=== PATIENT | male | born 1940 | race Caucasian/White ===

== ENCOUNTER 2023-09-05 12:18 | Inpatient (IN) | payer MEDICARE, OTHER ==
[~2023-09-05] VITALS: Ht 157.5 cm; Wt 71.2 kg
[2023-09-05] MEDS ORDERED: ESCI-9 PO (12:36)
[2023-09-05] MEDS ORDERED: ROSU10TA29 PO (12:36)
[2023-09-05] MEDS ORDERED: METO-356 PO (12:36)
[2023-09-05] MEDS ORDERED: ESOM40CA52 PO (12:36)
[2023-09-05] MEDS ORDERED: FINA5TAB11 PO (12:36)
[2023-09-05] MEDS ORDERED: PIOG30TA71 PO (12:36)
[2023-09-05] MEDS ORDERED: PRIM50TA5 PO (12:36)
[2023-09-05] MEDS ORDERED: LINA5TAB PO (12:36)
[2023-09-05] MEDS ORDERED: LOSA100T31 PO (12:36)
[2023-09-05] MEDS ORDERED: ZOLP5TAB8 PO (12:36)
[2023-09-05] MEDS ORDERED: BUDE10.26 INH (12:36)
[2023-09-05 12:51] LABS: BASOPHILS % (AUTO) 0.6 % (0.0-2.0); EOSINOPHILS # (AUTO) 0.2 K/uL (0.0-0.7); HEMATOCRIT 42.2 % (36.7-47.1); HEMOGLOBIN 13.9 g/dL (12.5-16.3); LYMPHOCYTES # (AUTO) 0.5 K/uL (0.8-4.8); LYMPHOCYTES % (AUTO) 7.1 % (20.5-51.5); MEAN CORPUSCULAR HEMOGLOBIN 30.2 uug (23.8-33.4); MEAN CORPUSCULAR HGB CONC 33 g/dL (32.5-36.3); MEAN CORPUSCULAR VOLUME 91.6 fL (73.0-96.2); MONOCYTES # (AUTO) 0.7 K/uL (0.1-1.30); MONOCYTES % (AUTO) 9.3 % (0.0-11.0); NEUTROPHILS # (AUTO) 6.2 K/uL (1.8-8.9); PLATELET COUNT (AUTO) 162 K/uL (152-348); RED CELL DISTRIBUTION WIDTH 14.7 % (12.1-16.2); WHITE BLOOD COUNT (AUTO) 7.7 K/uL (3.6-10.2)
[2023-09-05 13:00] LABS: CALCIUM 9.1 mg/dL (8.5-10.1); CARBON DIOXIDE 29 mmol/L (21-32); CHLORIDE 104 mmol/L (98-107); CREATININE 1.3 mg/dL (0.6-1.3); GLUCOSE 151 mg/dL (74-106); POTASSIUM 3.7 mmol/L (3.5-5.1); SODIUM SERUM 139 mmol/L (136-145); UREA NITROGEN, BLOOD 11 mg/dL (7-18)
[2023-09-05 13:01] LABS: DIFFERENTIAL COMMENT 1
[2023-09-05 13:14] LABS: NT-PRO BNP 3279 pg/mL (0-125)
[2023-09-05 13:25] VITALS: O2SAT 94
[2023-09-05] MEDS ORDERED: IPRATROPIUM BROMIDE 0.5 MG/2.5 ML NEBU ONE (13:28)
[2023-09-05] MEDS ORDERED: ALBUTEROL SULFATE 2.5 MG/3 ML NEBU ONE (13:28)
[2023-09-05] MEDS ORDERED: methylPREDNISolone SOD SUCC 125 MG/2 ML VIAL ONE (13:28)
[2023-09-05] MEDS: methylPREDNISolone SOD SUCC 125 MG/2 ML VIAL IV ONE (13:32)
[2023-09-05] MEDS: IPRATROPIUM BROMIDE 0.5 MG/2.5 ML NEBU NEB ONE (13:37)
[2023-09-05] MEDS: ALBUTEROL SULFATE 2.5 MG/3 ML NEBU NEB ONE (13:37)
[2023-09-05] MEDS ORDERED: ASPIRIN 81 MG TAB.CHEW ONE (14:01)
[2023-09-05] MEDS ORDERED: FUROSEMIDE 40 MG/4 ML VIAL ONE (14:01)
[2023-09-05] MEDS ORDERED: ACETAMINOPHEN 325 MG TABLET ONE (14:01)
[2023-09-05] MEDS ORDERED: IOHEXOL 350 100 ML INFUS..BTL ONE (14:07)
[2023-09-05] MEDS ORDERED: IV NORMAL SALINE 250 ML IV ONE (14:07)
[2023-09-05] MEDS ORDERED: SWABABLE VALVE TRANSFER SET EA MC ONE (14:07)
[2023-09-05] MEDS: ACETAMINOPHEN 325 MG TABLET PO ONE (14:14)
[2023-09-05] MEDS: ASPIRIN 81 MG TAB.CHEW PO ONE (14:14)
[2023-09-05] MEDS: FUROSEMIDE 40 MG/4 ML VIAL IV ONE (14:14)
[2023-09-05 14:25] VITALS: O2SAT 97
[2023-09-05] MEDS ORDERED: PANTOPRAZOLE SODIUM 40 MG TABLET.DR PO ONE (14:56)
[2023-09-05] MEDS: PANTOPRAZOLE SODIUM 40 MG TABLET.DR PO ONE (15:03)
[2023-09-05] MEDS ORDERED: DEXTROSE 50% 50 ML DISP.SYRIN IV PRN (18:00)
[2023-09-05] MEDS ORDERED: ONDANSETRON 4 MG/2 ML VIAL IV PRN (18:00)
[2023-09-05] MEDS ORDERED: ALBUTEROL SULFATE 2.5 MG/ 0.5 ML NEBU NEB PRN (18:00)
[2023-09-05] MEDS ORDERED: MORPHINE SULFATE 2 MG/1 ML DISP.SYRIN IV PRN (18:00)
[2023-09-05] MEDS ORDERED: MAGNESIUM HYDROXIDE 30 ML LIQUID UDC PO PRN (18:00)
[2023-09-05 22:40] VITALS: BP 183/90; TEMP 98.2; O2SAT 96
[2023-09-05] MEDS: BLOOD SUGAR DIAGNOSTIC 1 EACH STRIP VI SCH (23:20)
[2023-09-05] MEDS: INSULIN REGULAR, HUMAN 300 UNIT/3 ML VIAL SQ PRN (23:26)
[2023-09-05] MEDS: ENOXAPARIN SODIUM 80 MG/0.8 ML DISP.SYRIN SQ SCH (23:26)
[2023-09-05] MEDS: DOCUSATE SODIUM 100 MG CAPSULE PO SCH (23:27)
[2023-09-05] MEDS: PRIMIDONE 50 MG TABLET PO SCH (23:27)
[2023-09-05] MEDS: METOPROLOL SUCCINATE XL 25 MG TAB.SR.24H PO SCH (23:29)
[2023-09-05] MEDS: LOSARTAN POTASSIUM 50 MG TABLET PO SCH (23:30)
[2023-09-06] VITALS: BP 162/91; TEMP 97.7; O2SAT 95
[2023-09-06 04:00] VITALS: BP 185/97; TEMP 99.1; O2SAT 96
[2023-09-06] MEDS: PANTOPRAZOLE SODIUM 40 MG TABLET.DR PO SCH (06:24)
[2023-09-06 07:20] LABS: BASOPHILS % (AUTO) 0.4 % (0.0-2.0); HEMATOCRIT 44.7 % (36.7-47.1); HEMOGLOBIN 14.9 g/dL (12.5-16.3); LYMPHOCYTES # (AUTO) 0.7 K/uL (0.8-4.8); LYMPHOCYTES % (AUTO) 8.8 % (20.5-51.5); MEAN CORPUSCULAR HEMOGLOBIN 30.2 uug (23.8-33.4); MEAN CORPUSCULAR HGB CONC 33 g/dL (32.5-36.3); MEAN CORPUSCULAR VOLUME 90.4 fL (73.0-96.2); MONOCYTES # (AUTO) 0.8 K/uL (0.1-1.30); MONOCYTES % (AUTO) 9.7 % (0.0-11.0); NEUTROPHILS # (AUTO) 6.4 K/uL (1.8-8.9); NEUTROPHILS % (AUTO) 81.1 % (38.5-71.5); PLATELET COUNT (AUTO) 182 K/uL (152-348); RED BLOOD CELL COUNT(AUTO) 4.94 MIL/uL (4.06-5.63); RED CELL DISTRIBUTION WIDTH 14.7 % (12.1-16.2); WHITE BLOOD COUNT (AUTO) 7.9 K/uL (3.6-10.2)
[2023-09-06 07:27] LABS: DIFFERENTIAL COMMENT 1
[2023-09-06 07:38] LABS: ALANINE AMINOTRANSFERASE 20 U/L (16-63); ALBUMIN 3.6 g/dL (3.4-5.0); ALKALINE PHOSPHATASE 38 U/L (50-136); ASPARTATE AMINOTRANSFERASE 106 U/L (15-37); BILIRUBIN,TOTAL 0.6 mg/dL (0.2-1.0); CALCIUM 8.8 mg/dL (8.5-10.1); CARBON DIOXIDE 28 mmol/L (21-32); CHLORIDE 102 mmol/L (98-107); CHOLESTEROL 219 mg/dL (<200); CREATININE 1.5 mg/dL (0.6-1.3); GLUCOSE 122 mg/dL (74-106); HDL CHOLESTEROL 73 mg/dL (40-60); MAGNESIUM 1.8 mg/dL (1.8-2.4); PHOSPHOROUS 3.4 mg/dL (2.5-4.9); POTASSIUM 3.3 mmol/L (3.5-5.1); SODIUM SERUM 141 mmol/L (136-145); TOTAL PROTEIN, SERUM 7.3 g/dL (6.4-8.2); TRIGLYCERIDES 47 MG/DL (30-150); UREA NITROGEN, BLOOD 16 mg/dL (7-18)
[2023-09-06 07:44] LABS: THYROID STIMULATING HORMONE 1.468 mIU/mL (0.358-3.740)
[2023-09-06] MEDS: FINASTERIDE 5 MG TABLET PO SCH (08:50)
[2023-09-06] MEDS: ENOXAPARIN SODIUM 80 MG/0.8 ML DISP.SYRIN SQ SCH (08:53)
[2023-09-06] MEDS ORDERED: ESCITALOPRAM OXALATE 10 MG TABLET PO SCH ×2 (09:00)
[2023-09-06 11:11] VITALS: BP 173/92; TEMP 98.4; O2SAT 96
[2023-09-06] MEDS: POTASSIUM CHLORIDE 20 MEQ TAB.PRT.SR PO ONE (11:14)
[2023-09-06] MEDS: ENALAPRILAT DIHYDRATE 1.25 MG/1 ML VIAL IV PRN (11:14)
[2023-09-06] MEDS ORDERED: TAMS-3 PO (12:51)
[2023-09-06] MEDS ORDERED: BRIM5DRO2 EACHEYE (12:51)
[2023-09-06] MEDS ORDERED: CLON0.2T PO (12:52)
[2023-09-06 13:54] LABS: *BILIRUBIN,URIN NEGATIVE (NEGATIVE); *CLARITY,URINE CLEAR (CLEAR); *COLOR,URINE YELLOW (YELLOW); *KETONES,URINE NEGATIVE (NEGATIVE); *PROTEIN,URINE 2+ (NEGATIVE); *UROBILINOGEN,URINE 0.2 E.U./dl (NORMAL); LEUKOCYTE ESTERASE ,URINE NEGATIVE (NEGATIVE); NITRITE, URINE NEGATIVE (NEGATIVE); PH,URINE 5.5 (5.0-8.0); UGLUCOSE TRACE (NEGATIVE)
[2023-09-06 14:06] LABS: *BLOOD, URINE TRACE (NEGATIVE)
[2023-09-06 14:33] LABS: BACTERIA,URINE FEW /HPF (NONE SEEN); RBC,URINE 0-3 /HPF (0-3); SQUAMOUS EPITHELIAL CELL,UR FEW /HPF (NONE SEEN); WBC,URINE 0-3 /HPF (0-3)
[2023-09-06 15:27] VITALS: BP 150/81; TEMP 98.7; O2SAT 96
[2023-09-06] MEDS: ASPIRIN EC 325 MG TABLET.DR PO SCH (16:09)
[2023-09-06] MEDS: AMLODIPINE 5 MG TABLET PO SCH (16:09)
[2023-09-06] MEDS: ACETAMINOPHEN 325 MG TABLET PO PRN (16:54)
[2023-09-06 20:00] VITALS: BP 166/80; TEMP 98.9; O2SAT 94
[2023-09-06] MEDS ORDERED: ATORVASTATIN 20 MG TABLET PO SCH ×2 (21:00)
[2023-09-06] MEDS: ATORVASTATIN 40 MG TABLET PO SCH (21:41)
[2023-09-06] MEDS: PRIMIDONE 50 MG TABLET PO SCH (21:44)
[2023-09-07] VITALS: BP 152/78; TEMP 98.8; O2SAT 94
[2023-09-07 04:00] VITALS: BP 125/83; TEMP 98.8; O2SAT 96
[2023-09-07 06:59] LABS: BASOPHILS % (AUTO) 0.2 % (0.0-2.0); EOSINOPHILS % (AUTO) 0.5 % (0.0-7.0); HEMATOCRIT 45.6 % (36.7-47.1); HEMOGLOBIN 15.1 g/dL (12.5-16.3); LYMPHOCYTES # (AUTO) 1.2 K/uL (0.8-4.8); LYMPHOCYTES % (AUTO) 16.3 % (20.5-51.5); MEAN CORPUSCULAR HEMOGLOBIN 30.2 uug (23.8-33.4); MEAN CORPUSCULAR HGB CONC 33 g/dL (32.5-36.3); MEAN CORPUSCULAR VOLUME 91.3 fL (73.0-96.2); MONOCYTES # (AUTO) 0.8 K/uL (0.1-1.30); MONOCYTES % (AUTO) 9.9 % (0.0-11.0); NEUTROPHILS # (AUTO) 5.6 K/uL (1.8-8.9); NEUTROPHILS % (AUTO) 73.1 % (38.5-71.5); PLATELET COUNT (AUTO) 172 K/uL (152-348); RED BLOOD CELL COUNT(AUTO) 4.99 MIL/uL (4.06-5.63); RED CELL DISTRIBUTION WIDTH 14.9 % (12.1-16.2); WHITE BLOOD COUNT (AUTO) 7.6 K/uL (3.6-10.2)
[2023-09-07 07:00] LABS: DIFFERENTIAL COMMENT 1
[2023-09-07] MEDS: CLOPIDOGREL 75 MG TABLET PO ONE (07:02)
[2023-09-07 07:09] LABS: ALANINE AMINOTRANSFERASE 30 U/L (16-63); ALBUMIN 3.4 g/dL (3.4-5.0); ALKALINE PHOSPHATASE 39 U/L (50-136); ASPARTATE AMINOTRANSFERASE 125 U/L (15-37); BILIRUBIN,TOTAL 0.6 mg/dL (0.2-1.0); CALCIUM 8.6 mg/dL (8.5-10.1); CARBON DIOXIDE 30 mmol/L (21-32); CHLORIDE 104 mmol/L (98-107); CREATINE KINASE, TOTAL 1068 U/L (39-308); CREATININE 1.7 mg/dL (0.6-1.3); GLUCOSE 88 mg/dL (74-106); MAGNESIUM 1.9 mg/dL (1.8-2.4); PHOSPHOROUS 3.4 mg/dL (2.5-4.9); SODIUM SERUM 140 mmol/L (136-145); UREA NITROGEN, BLOOD 23 mg/dL (7-18)
[2023-09-07] MEDS ORDERED: ASPIRIN EC 325 MG TABLET.DR PO SCH (09:00)
[2023-09-07] MEDS: CARVEDILOL 12.5 MG TABLET PO SCH (10:41)
[2023-09-07] MEDS: ASPIRIN EC 81 MG TABLET.DR PO SCH (10:42)
[2023-09-07] MEDS: ENOXAPARIN SODIUM 80 MG/0.8 ML DISP.SYRIN SQ SCH (10:47)
[2023-09-07 10:55] VITALS: O2SAT 95
[2023-09-07] MEDS: ALBUTEROL SULFATE 2.5 MG/3 ML NEBU NEB PRN (10:57)
[2023-09-07 11:07] VITALS: O2SAT 99
[2023-09-07] MEDS: TAMSULOSIN HCL 0.4 MG CAP.SR.24H PO SCH (11:44)
[2023-09-07 12:46] VITALS: BP 140/90; TEMP 98.1; O2SAT 96
[2023-09-07] MEDS ORDERED: ASPI-618 PO (13:46)
[2023-09-07] MEDS ORDERED: ATOR40TA PO (13:46)
[2023-09-07] MEDS ORDERED: TAMS-3 PO (13:46)
[2023-09-07] MEDS ORDERED: CLOP75TA33 PO (13:46)
[2023-09-07] MEDS ORDERED: LOSA50TA3 PO (13:46)
[2023-09-07] MEDS ORDERED: CARV12.52 PO (13:46)
[2023-09-07] MEDS ORDERED: TIMOLOL MALEATE 0.5% OPHT DROP 5 ML BOTTLE EACHEYE SCH (17:00)
[2023-09-07] MEDS ORDERED: BRIMONIDINE 0.2% OPHT DROP 10 ML BOTTLE EACHEYE SCH (17:00)
[2023-09-08 03:06] LABS: PTH, INTACT 35 pg/mL (15-65)
[2023-09-08] MEDS ORDERED: CLOPIDOGREL 75 MG TABLET PO SCH (09:00)
[2023-09-08 12:06] LABS: A/G RATIO 1.1 (0.7-1.7); ALBUMIN 3.2 g/dL (2.9-4.4); ALPHA-1-GLOBULIN 0.3 g/dL (0.0-0.4); ALPHA-2-GLOBULIN 0.8 g/dL (0.4-1.0); BETA GLOBULIN 0.9 g/dL (0.7-1.3); GAMMA GLOBULIN 0.9 g/dL (0.4-1.8); M-SPIKE Not Observed g/dL (Not Observed)
== END 2023-09-07 14:30 | disposition home or self-care (01) | DRG 280 ==
LOC: ER 12:18 → TELE3 21:32
PROVIDERS: ADMIT Internal Medicine; ATTEND Internal Medicine
DX: I21.4 Non-ST elevation (NSTEMI) myocardial infarction (principal); I50.33 Acute on chronic diastolic (congestive) heart failure; J96.91 Respiratory failure, unspecified with hypoxia; D68.69 Other thrombophilia; N17.9 Acute kidney failure, unspecified; I13.0 Hypertensive heart and chronic kidney disease with heart failure and stage 1 through stage 4 chronic kidney disease, or unspecified chronic kidney disease; J44.1 Chronic obstructive pulmonary disease with (acute) exacerbation; J45.901 Unspecified asthma with (acute) exacerbation; I16.0 Hypertensive urgency; I25.5 Ischemic cardiomyopathy; Z74.09 Other reduced mobility; E78.5 Hyperlipidemia, unspecified; I25.2 Old myocardial infarction; K21.9 Gastro-esophageal reflux disease without esophagitis; Z87.891 Personal history of nicotine dependence; Z85.46 Personal history of malignant neoplasm of prostate; Z20.822 Contact with and (suspected) exposure to COVID-19; R53.1 Weakness; I25.10 Atherosclerotic heart disease of native coronary artery without angina pectoris; I21.A1 Myocardial infarction type 2; K44.9 Diaphragmatic hernia without obstruction or gangrene; K59.00 Constipation, unspecified; N18.9 Chronic kidney disease, unspecified; E66.01 Morbid (severe) obesity due to excess calories; Z68.28 Body mass index [BMI] 28.0-28.9, adult; J44.9 Chronic obstructive pulmonary disease, unspecified; J20.8 Acute bronchitis due to other specified organisms; E11.22 Type 2 diabetes mellitus with diabetic chronic kidney disease; Z79.84 Long term (current) use of oral hypoglycemic drugs
CPT/HCPCS: 36415; 71045; 71275; 83735; 83970; 84100; 84155; 84165; 84443; 84484; 85025; 93005; 93307; 94664; A4606; A4663; G0378; J1650; J1815; J1940; J2930; J3490; J3590; Q9967